=== PATIENT | male | born 1945 | race Caucasian/White ===

== ENCOUNTER → 2024-07-03 | Outpatient (CLI) | payer MEDICARE, OTHER, SELFPAY ==
--- NOTE | 2024-07-03 14:34 | RAD_ITS ---
EXAM: XR THORACIC SPINE, 3 VIEWS CLINICAL INDICATION: SCS LEAD CHECK TECHNIQUE: Frontal, lateral and swimmer''s views of the thoracic spine. COMPARISON: No relevant prior studies available. FINDINGS: VERTEBRAE: Unremarkable. Preserved vertebral body height. No fracture. No spondylolisthesis. Preservation of the normal thoracic kyphosis. No significant facet arthropathy. DISC SPACES: Degenerative changes body spine. LUNGS AND PLEURAL SPACES: Unremarkable as visualized. No consolidation. No in pleural effusion or pneumothorax. TUBES, LINES AND DEVICES: Intrathecal catheter identified with tip projecting over the top of T7 vertebral body. RAD/Thoracic Spine 2 Views IMPRESSION: 1. No acute or healing fracture or malalignment. 2. Chronic findings as above. Electronically Signed: Anthony Nobles MD at 4:37 EDT ,
--- NOTE | 2024-07-03 14:34 | RAD_ITS ---
STUDY: X-RAY - LUMBAR SPINE REASON FOR EXAM: Male, 78 years old. SCS LEAD CHECK TECHNIQUE: 3 view(s) of the lumbar spine were obtained. COMPARISON: 04/06/2024 FINDINGS: Normal lumbar lordosis. There is no substantial scoliosis. There is a normal alignment of the vertebrae. No change in the chronic moderate wedge compression fracture of the L2 vertebral body. There is multi-level degenerative disc disease with multi-level disc space narrowing. There is multilevel facet hypertrophy. The soft tissue structures are unremarkable. Dorsal columns, sigmoid and lower thoracic spine. RAD/Lumbar Spine 2 or 3 Views IMPRESSION: Chronic moderate wedge compression fracture of L2. Diffuse degenerative disc disease Dorsal column spinal stimulator. Electronically Signed: Randy Rogers MD at 11:19 EDT ,
== END | disposition home or self-care (01) ==
PROVIDERS: Referring Provider Anesthesiology; Visit Provider Anesthesiology
DX: Z96.82 Presence of neurostimulator (principal)
CPT/HCPCS: 72070; 72100